=== PATIENT | female | born 1985 | race Caucasian/White ===

== ENCOUNTER 2022-10-08 12:46 | Emergency (ER) | payer MEDICAID | END 2022-10-08 12:47 | LOC: JD.ED 12:46 | DX: Z53.21 Procedure and treatment not carried out due to patient leaving prior to being seen by health care provider (principal) ==

== ENCOUNTER 2024-06-16 02:10 | Emergency (ER) | payer SELFPAY ==
[2024-06-16] MEDS: Ketorolac 30 MG/ML SDV IM ONE (02:50)
== END 2024-06-16 04:50 | disposition home or self-care (01) ==
LOC: JD.ED 02:10
DX: S40.021A Contusion of right upper arm, initial encounter (principal); S40.022A Contusion of left upper arm, initial encounter; X58.XXXA Exposure to other specified factors, initial encounter
CPT/HCPCS: 73060; 73090; 73130; 96372; 99283; J1885